=== PATIENT | male | born 1960 | race Caucasian/White ===

== ENCOUNTER 2020-10-09 10:50 | Outpatient (CLI) | payer BC ==
[2020-10-09 12:55] LABS: Mean Corpuscular HGB CONC 32.6 g/dL (32.0-36.0); Mean Corpuscular Hemoglobin 28.6 pg (27.0-33.0); Mean Corpuscular Volume 87.6 fl (81.2-95.1); Platelet Count 345 10x3/uL (150-450); RBC Distribution Width 13.6 % (11.5-14.5); Red Blood Cell (RBC) Count 5.25 10x6/uL (4.32-5.72); White Blood Cell (WBC) Count 9.7 10x3/uL (3.5-10.5)
[2020-10-09 13:00] LABS: INR-International Normal Ratio 0.9; PTT 24.8 sec (22.0-33.0); Prothrombin Time 10.4 sec (9.5-12.1)
[2020-10-09 13:15] LABS: Anion Gap 15 mmol/L (10-20); BUN (Urea Nitrogen) 18 mg/dL (8.4-25.7); Calc. Creatinine Clearance 0 mL/min (70-130); Calcium 11.3 mg/dL (7.8-10.44); Carbon Dioxide 27 mmol/L (23-31); Chloride 103 mmol/L (98-107); Glucose 99 mg/dL (80-115); Potassium 4.5 mmol/L (3.5-5.1); Sodium 140 mmol/L (136-145)
[2020-10-09 13:43] LABS: Bilirubin Neg (Negative); Blood, Urine Negative (Negative); Clarity Clear (Clear); Glucose, Urine (Dipstick) Normal (Negative); Ketone, Urine Negative (Negative); Leukocyte Negative (Negative); Nitrite Negative (Negative); Protein, Urine (Dipstick) 30 mg/dl (Neg-Trace); Specific Gravity, Urine 1.025 (1.002-1.036); Urobilinogen Normal mg/dL (Less than 2)
[2020-10-09 14:20] LABS: Bacteria/HPF None Seen HPF (None Seen); Mucous/LPF 2+ LPF (<2+); RBC/HPF None Seen HPF (0-3); Squamous Epithelial 0-3 HPF (0-3); WBC/HPF None Seen HPF (0-3)
[2020-10-09 21:11] LABS: SARS-CoV-2 PCR by NAA Not Detected (NotDetected)
== END 2020-10-09 10:51 | disposition home or self-care (01) ==
LOC: LABBT 10:50
PROVIDERS: ATTEND Urology
DX: Z01.818 Encounter for other preprocedural examination (principal); N40.1 Benign prostatic hyperplasia with lower urinary tract symptoms; R35.1 Nocturia; N52.9 Male erectile dysfunction, unspecified; Z20.822 Contact with and (suspected) exposure to COVID-19
CPT/HCPCS: 80048; 81001; 85027; 85610; 85730; 87086; 93005; 93010; U0003; U0005

== ENCOUNTER 2020-11-29 07:05 | Outpatient (CLI) | payer BC | END 2020-11-29 07:06 | disposition home or self-care (01) | LOC: BICULT 07:05 | PROVIDERS: ATTEND Urology | DX: I10 Essential (primary) hypertension (principal); N28.1 Cyst of kidney, acquired | CPT/HCPCS: 76770; 93975 ==